=== PATIENT | female | born 1990 | race Caucasian/White ===

== ENCOUNTER 2018-05-23 17:56 | Emergency (ER) | payer MEDICAID ==
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
[2018-05-23] MEDS ORDERED: NS(*) 0.9% 1000 ML BAG 1,000 ML IV ONE (18:25)
--- NOTE | 2018-05-23 18:34 | EKG ---
FACILITY: [facility] PATIENT NAME: MARTHA AGUILAR : [id number] MR: [id number] V: [id number] EXAM DATE: ORDERING PHYSICIAN: RIGOBERTO SINGER TECHNOLOGIST: ROSAS Test Reason : POSSIBLE SIEZURE Blood Pressure : / mmHG Vent. Rate : 079 BPM Atrial Rate : 079 BPM P-R Int : 112 ms QRS Dur : 094 ms QT Int : 378 ms P-R-T Axes : 047 012 047 degrees QTc Int : 433 ms Normal sinus rhythm No previous ECGs available Confirmed by CRISTINA MARTINEZ ([id number] on 05/24/2018 6:28:38 AM Referred By: LUCRECIA Confirmed By:CRISTINA MARTINEZ
[2018-05-23 18:43] LABS: PLATELET COUNT, AUTOMATED 336 K/uL (150-450)
[2018-05-23 19:30] VITALS: BP 125/88
== END 2018-05-23 20:04 | disposition home or self-care (01) ==
LOC: ER 18:25
DX: R55 Syncope and collapse (principal); E86.0 Dehydration; Z33.1 Pregnant state, incidental; Z3A.01 Less than 8 weeks gestation of pregnancy
CPT/HCPCS: 80305; 83735; 84702; 84703; 85025; 93005; 96360; 99283; G0480; J7030; 80320; 82040; 82247; 82310; 82374; 82435; 82565; 82947; 84075; 84132; 84155; 84295; 84450; 84460; 84520